=== PATIENT | male | born 1995 | race Caucasian/White ===

== ENCOUNTER 2017-02-12 20:23 | Inpatient (IN) | payer MEDICAID ==
[~2017-02-12] VITALS: Ht 167.6 cm; Wt 49.9 kg
[2017-02-12] MEDS ORDERED: LORazepam 2 MG/ML VIAL ONE (21:24)
[2017-02-12] MEDS ORDERED: DiphenhydrAMINE HCL 50 MG/ML VIAL ONE (21:24)
[2017-02-12] MEDS ORDERED: HALOPERIDOL LACTATE 5 MG/ML VIAL ONE (21:24)
[2017-02-12] MEDS ORDERED: LORazepam 2 MG/ML VIAL IM ONE (21:30)
[2017-02-12] MEDS ORDERED: HALOPERIDOL LACTATE 5 MG/ML VIAL IM ONE (21:30)
[2017-02-12] MEDS ORDERED: DiphenhydrAMINE HCL 50 MG/ML VIAL IM ONE (21:30)
[2017-02-12 22:06] VITALS: BP 119/78
[2017-02-12] MEDS ORDERED: PNEUMOCOCCAL VACCINE POLYVALENT 0.5 ML VIAL [PPSV23] IM ONE (22:15)
[2017-02-12] MEDS ORDERED: INFLUENZA VIRUS VACCINE QVS 2017-18 (3YR+)/PF 60 MCG/0.5 ML SYRINGE IM ONE (22:15)
[2017-02-12 22:26] VITALS: BP 130/86
[2017-02-13 06:26] VITALS: BP 128/83
[2017-02-13 08:00] VITALS: BP 111/67
[2017-02-13] MEDS ORDERED: IBUPROFEN 600 MG TABLET PO PRN (08:45)
[2017-02-13] MEDS ORDERED: MAGNESIUM HYDROXIDE SUSPENSION 30 ML UDCUP PO PRN (08:45)
[2017-02-13] MEDS ORDERED: ACETAMINOPHEN 325 MG TABLET PO PRN (08:45)
[2017-02-13] MEDS ORDERED: CloNIDine HCL 0.1 MG TABLET PO PRN (08:45)
[2017-02-13] MEDS ORDERED: BENZOCAINE/MENTHOL LOZENGE MM PRN (08:45)
[2017-02-13] MEDS ORDERED: ALBUTEROL SULFATE HFA 90 MCG/PUFF 8 GM INHALER IH PRN (08:45)
[2017-02-13] MEDS ORDERED: MAG HYDROX/AL HYDROX/SIMETH ES 30 ML SUSPENSION UDCUP PO PRN (08:45)
[2017-02-13] MEDS ORDERED: PETROLATUM,WHITE 71 GM JELLY TP PRN (08:45)
[2017-02-13] MEDS ORDERED: BACITRACIN 28.4 GM OINTMENT TP PRN (08:45)
[2017-02-13] MEDS ORDERED: ONDANSETRON HCL 4 MG TABLET PO PRN (08:45)
[2017-02-13] MEDS ORDERED: LOPERAMIDE HCL 2 MG CAPSULE PO PRN (08:45)
[2017-02-13 08:48] LABS: BASOPHILS % (AUTO) 0.3 % (0.0-2.0); EOSINOPHILS % (AUTO) 1.8 % (1.0-6.0); HEMATOCRIT 38.7 % (41-53); HEMOGLOBIN 13.9 g/dL (13.5-17.5); LYMPHOCYTES # (AUTO) 2.7 K/uL (1.0-4.8); LYMPHOCYTES % (AUTO) 42.7 % (22.0-44.0); MEAN CORPUSCULAR HEMOGLOBIN 33.9 pg (26.0-34.0); MEAN CORPUSCULAR VOLUME 94 fL (80-100); MONOCYTES # (AUTO) 0.9 K/uL (0.1-1.0); MONOCYTES % (AUTO) 13.8 % (2.0-9.0); NEUTROPHILS # (AUTO) 2.6 K/uL (1.8-7.7); NEUTROPHILS % (AUTO) 41.4 % (40.0-70.0); PLATELET COUNT (AUTO) 205 K/uL (150-450); RED BLOOD CELL COUNT(AUTO) 4.12 MIL/uL (4.50-5.90); WHITE BLOOD COUNT (AUTO) 6.3 K/uL (4.5-11.0)
[2017-02-13 09:15] LABS: ALANINE AMINOTRANSFERASE 34 U/L (12-78); ALBUMIN 3.4 g/dL (3.4-5.0); ANION GAP 5 mmol/L (8-16); ASPARTATE AMINOTRANSFERASE 52 U/L (15-37); BILIRUBIN,TOTAL 0.8 mg/dL (0.1-1.0); CALCIUM, TOTAL 8.6 mg/dL (8.8-10.5); CARBON DIOXIDE 32 mmol/L (22-29); CHLORIDE 102 mmol/L (98-107); GLOMERULAR FILTR. RATE CALC > 60 mL/min (>60); POTASSIUM 4.5 mmol/L (3.5-5.1); SODIUM SERUM 139 mmol/L (136-145); TOTAL PROTEIN, SERUM 6.2 g/dL (6.4-8.2); UREA NITROGEN, BLOOD 9 mg/dL (7-18)
[2017-02-13 16:00] VITALS: BP 116/65
[2017-02-13] MEDS: LORazepam 2 MG TABLET PO PRN (16:35)
[2017-02-13] MEDS: TraZODone HCL 50 MG TABLET PO SCH (20:37)
[2017-02-13] MEDS: ZOLPIDEM TARTRATE 10 MG TABLET PO PRN (20:37)
[2017-02-13] MEDS: OLANZapine 10 MG TABLET PO SCH (20:40)
[2017-02-14 05:26] VITALS: BP 106/68
[2017-02-14 08:10] VITALS: BP 114/67
[2017-02-14] MEDS: HALOPERIDOL 5 MG TABLET PO PRN (08:55)
[2017-02-14] MEDS: LORazepam 2 MG TABLET PO PRN (08:55)
[2017-02-14 16:00] VITALS: BP 110/68
[2017-02-14] MEDS: BusPIRone HCL 5 MG TABLET PO SCH (16:45)
[2017-02-14] MEDS: OLANZapine 10 MG TABLET PO SCH (20:41)
[2017-02-14] MEDS: ZOLPIDEM TARTRATE 10 MG TABLET PO PRN (20:42)
[2017-02-14] MEDS: TraZODone HCL 50 MG TABLET PO SCH (20:42)
[2017-02-15 03:52] VITALS: BP 114/63
[2017-02-15 08:47] VITALS: BP 97/68
[2017-02-15] MEDS: BusPIRone HCL 5 MG TABLET PO SCH ×3 (09:03→16:24)
[2017-02-15 16:00] VITALS: BP 112/64
[2017-02-15] MEDS: LORazepam 2 MG TABLET PO PRN (16:24)
[2017-02-15] MEDS: HALOPERIDOL 5 MG TABLET PO PRN (16:24)
[2017-02-15] MEDS: TraZODone HCL 50 MG TABLET PO SCH (20:55)
[2017-02-15] MEDS: OLANZapine 10 MG TABLET PO SCH (20:55)
[2017-02-15] MEDS: ZOLPIDEM TARTRATE 10 MG TABLET PO PRN (20:55)
[2017-02-16 06:09] VITALS: BP 102/63
[2017-02-16 08:09] VITALS: BP 104/61
[2017-02-16] MEDS: BusPIRone HCL 5 MG TABLET PO SCH ×3 (09:12→16:54)
[2017-02-16 16:00] VITALS: BP 108/64
[2017-02-16] MEDS: GuaiFENesin/D-METHORPHAN [SUGAR-FREE] 200-20MG/10 ML SYRUP UDCUP PO PRN (16:15)
[2017-02-16] MEDS: LORazepam 2 MG TABLET PO PRN (16:54)
[2017-02-16] MEDS: HALOPERIDOL 5 MG TABLET PO PRN (16:54)
[2017-02-16] MEDS: TraZODone HCL 50 MG TABLET PO SCH (20:41)
[2017-02-16] MEDS: OLANZapine 10 MG TABLET PO SCH (20:41)
[2017-02-17 06:41] VITALS: BP 108/66
[2017-02-17] MEDS ORDERED: MENTHOL/CAMPHOR/DIMETH/PHENOL 10 GM OINTMENT TP PRN (08:30)
[2017-02-17 08:32] VITALS: BP 100/55
[2017-02-17] MEDS: BusPIRone HCL 5 MG TABLET PO SCH ×3 (09:53→16:56)
[2017-02-17] MEDS: GuaiFENesin/D-METHORPHAN [SUGAR-FREE] 200-20MG/10 ML SYRUP UDCUP PO PRN (14:54)
[2017-02-17 16:05] VITALS: BP 113/69
[2017-02-17] MEDS: LORazepam 2 MG TABLET PO PRN (16:56)
[2017-02-17] MEDS: HALOPERIDOL 5 MG TABLET PO PRN (16:56)
[2017-02-17] MEDS: TraZODone HCL 50 MG TABLET PO SCH (20:40)
[2017-02-17] MEDS: OLANZapine 10 MG TABLET PO SCH (20:40)
[2017-02-17] MEDS: ZOLPIDEM TARTRATE 10 MG TABLET PO PRN (20:40)
[2017-02-18 06:35] VITALS: BP 108/67
[2017-02-18 08:31] VITALS: BP 116/55
[2017-02-18] MEDS: BusPIRone HCL 5 MG TABLET PO SCH ×3 (09:08→16:05)
[2017-02-18 09:15] LABS: APPEARANCE,URINE CLEAR (CLEAR); GLUCOSE, URINE (UA) NEGATIVE (NEGATIVE); KETONES,URINE NEGATIVE (NEGATIVE); LEUKOCYTE ESTERASE ,URINE NEGATIVE (NEGATIVE); OCCULT BLOOD,URINE NEGATIVE (NEGATIVE); PH,URINE 6.5 (5.0-8.0); PROTEIN,URINE NEGATIVE (NEGATIVE)
[2017-02-18 09:19] LABS: ADD UA MICROSCOPIC NO
[2017-02-18 16:00] VITALS: BP 112/64
[2017-02-18] MEDS: LORazepam 2 MG TABLET PO PRN (16:06)
[2017-02-18] MEDS: GuaiFENesin/D-METHORPHAN [SUGAR-FREE] 200-20MG/10 ML SYRUP UDCUP PO PRN (16:06)
[2017-02-18] MEDS: OLANZapine 10 MG TABLET PO SCH (20:30)
[2017-02-18] MEDS: TraZODone HCL 50 MG TABLET PO SCH (20:30)
[2017-02-18] MEDS: ZOLPIDEM TARTRATE 10 MG TABLET PO PRN (20:30)
[2017-02-18] MEDS ORDERED: BUSP5TAB20 PO (22:14)
[2017-02-18] MEDS ORDERED: TRAZ-144 PO (22:15)
[2017-02-18] MEDS ORDERED: OLAN10TA3 PO (22:15)
[2017-02-19 07:02] VITALS: BP 113/62
[2017-02-19] MEDS: BusPIRone HCL 5 MG TABLET PO SCH (08:03)
[2017-02-19] MEDS: LORazepam 2 MG TABLET PO PRN (08:03)
[2017-02-19 08:11] VITALS: BP 131/69
== END 2017-02-19 09:15 | disposition home or self-care (01) | DRG 750 ==
LOC: EDSTATUS 21:35 → B3A 21:36
PROVIDERS: ADMIT Psychiatry & Neurology Child & Adolescent Psychiatry; ATTEND Psychiatry & Neurology Child & Adolescent Psychiatry
DX: F20.0 Paranoid schizophrenia (principal); R45.851 Suicidal ideations; F17.200 Nicotine dependence, unspecified, uncomplicated; G47.00 Insomnia, unspecified; J02.9 Acute pharyngitis, unspecified; Z71.6 Tobacco abuse counseling
CPT/HCPCS: 99285; J1200; J1630; J2060

== ENCOUNTER 2023-01-18 03:29 | Emergency (ER) | payer MEDICAID, OTHER ==
[~2023-01-18] VITALS: Ht 177.8 cm; Wt 59.0 kg
[~2023-01-18 03:29] MED LIST: BUSP5TAB20 PO; OLAN10TA74 PO; TRAZ-252 PO
[2023-01-18 03:48] VITALS: BP 122/85; PULSE 96; RESP 20; TEMP 97.5
[2023-01-18] MEDS ORDERED: FAMOTIDINE 20 MG TABLET PO ONE (04:00)
[2023-01-18] MEDS ORDERED: ONDANSETRON HCL 4 MG TABLET PO ONE (04:00)
[2023-01-18] MEDS ORDERED: MAG HYDROX/ALUMINUM HYD/SIMETH 30 ML SUSPENSION UDCUP PO ONE (04:00)
[2023-01-18] MEDS ORDERED: ACETAMINOPHEN 500 MG TABLET PO ONE (04:00)
[2023-01-18 04:20] LABS: COVID AG,FIA SOURCE NASAL SWAB
[2023-01-18 04:40] LABS: SARS-COV2 (COVID) ANTIGEN,FIA Negative (Negative)
== END 2023-01-18 05:18 | disposition left against medical advice (07) ==
LOC: EMS 03:32
DX: R11.2 Nausea with vomiting, unspecified (principal); R46.1 Bizarre personal appearance; R10.9 Unspecified abdominal pain; F20.9 Schizophrenia, unspecified; F17.210 Nicotine dependence, cigarettes, uncomplicated; F15.90 Other stimulant use, unspecified, uncomplicated; Z20.822 Contact with and (suspected) exposure to COVID-19
CPT/HCPCS: 99284; 87426; Q0162